=== PATIENT | female | born 1975 | race Caucasian/White ===

== ENCOUNTER → 2017-10-18 | Outpatient (CLI) | payer OTHER | END | disposition home or self-care (01) | LOC: RAH 14:42 | PROVIDERS: ATTEND Family Medicine | DX: Z12.31 Encounter for screening mammogram for malignant neoplasm of breast (principal) | CPT/HCPCS: 77067 ==

== ENCOUNTER 2020-12-21 17:02 | Emergency (ER) | payer OTHER ==
[~2020-12-21] VITALS: Ht 165.1 cm; Wt 93.9 kg
[2020-12-21 17:04] VITALS: BP 135/82
[2020-12-21] MEDS ORDERED: CYCLOBENZAPRINE HCL 10 MG TABLET PO ONE (18:00)
[2020-12-21] MEDS ORDERED: KETOROLAC 60 MG VIAL (30MG/ML) IM ONE (18:00)
[2020-12-21] MEDS ORDERED: KETOROLAC 60 MG VIAL (30MG/ML) ONE (18:04)
[2020-12-21 18:05] VITALS: BP 128/86
[2020-12-21] MEDS ORDERED: CYCLOBENZAPRINE HCL 10 MG TABLET ONE (18:05)
[2020-12-21 18:48] LABS: APPEARANCE,URINE Clear (CLEAR); BILIRUBIN,URINE Negative (NEGATIVE); COLOR,URINE Yellow (YELLOW); GLUCOSE, URINE (UA) Negative (NEGATIVE); KETONES,URINE Trace mg/dL (NEGATIVE); LEUKOCYTE ESTERASE ,URINE Moderate (NEGATIVE); NITRATE,URINE Negative (NEGATIVE); OCCULT BLOOD,URINE Moderate (NEGATIVE); PROTEIN,URINE Negative (NEGATIVE)
[2020-12-21 18:52] LABS: HCG,QUAL RESULT NEGATIVE (NEGATIVE)
[2020-12-21 18:59] LABS: BACTERIA,URINE Few /HPF (None Seen); SQUAMOUS EPITHELIAL CELL,UR Few /HPF (0-2)
[2020-12-21] MEDS ORDERED: CEFTRIAXONE 1G VIAL IM ONE (19:00)
[2020-12-21] MEDS ORDERED: CEPH500B PO (19:23)
[2020-12-21] MEDS ORDERED: IBUP-1552 PO (19:23)
[2020-12-21] MEDS ORDERED: GABA300C PO (19:23)
[2020-12-21] MEDS ORDERED: CYCL10 PO (19:30)
[2020-12-21 19:32] VITALS: BP 125/84
== END 2020-12-21 19:34 | disposition home or self-care (01) ==
LOC: EDH 17:02
DX: N39.0 Urinary tract infection, site not specified (principal); M54.16 Radiculopathy, lumbar region; Z79.1 Long term (current) use of non-steroidal anti-inflammatories (NSAID)
CPT/HCPCS: 81001; 81025; 87077; 87088; 87186; 96372 ×2; 99284; J0696; J1885